=== PATIENT | female | born 1975 | race Two or more races ===

== ENCOUNTER 2021-11-23 05:55 | Day surgery (SDC) | payer OTHER ==
[2021-11-23] MEDS ORDERED: NEXIUM 24HR20 MG PO ×2 (12:01)
== END 2021-11-23 13:55 | disposition home or self-care (01) ==
LOC: AMB-ENDOS 05:55
PROVIDERS: ATTEND Surgery
DX: D13.0 Benign neoplasm of esophagus (principal); Z20.822 Contact with and (suspected) exposure to COVID-19

== ENCOUNTER 2021-11-23 08:58 | Outpatient (CLI) | payer OTHER ==
[2021-11-23] MEDS ORDERED: NEXIUM 24HR20 MG PO ×2 (12:01)
== END 2021-11-23 09:04 | disposition home or self-care (01) ==
LOC: LAB 08:58
PROVIDERS: ATTEND Surgery
DX: Z20.828 Contact with and (suspected) exposure to other viral communicable diseases (principal)